=== PATIENT | male | born 1985 | race African-American/Black ===

== ENCOUNTER 2016-10-09 10:14 | Emergency (ER) | payer SELFPAY ==
[~2016-10-09] VITALS: Ht 167.6 cm; Wt 61.2 kg
[~2016-10-09 10:14] MED LIST: ANAPROX DS550 MG PO; FLUMADINE100 MG PO; PREDNISONE10 MG PO; ROBITUSSIN AC 110 ML PO; ZITHROMAX250 MG PO
[2016-10-09 10:57] LABS: BASO % 0.5 % (0.0-1.0); EOS # 0.1 10*3/uL (0.0-0.4); EOS % 1.8 % (1.0-4.0); HEMATOCRIT 46.5 % (42.0-52.0); HEMOGLOBIN 15.3 g/dl (14.0-18.0); LYMPH # 2.2 10*3/uL (1.3-4.4); LYMPH % 35.8 % (27.0-41.0); MEAN CELL VOLUME 96.3 fl (80.0-94.0); MEAN CORPUSCULAR HGB 31.7 pg (27.0-31.0); MEAN CORPUSCULAR HGB CONC 32.9 g/dl (33.0-37.0); MEAN PLATELET VOLUME 9.3 fl (9.6-12.3); MONO # 0.8 10*3/uL (0.1-1.0); MONO % 13.3 % (3.0-9.0); NEUT % 48.3 % (47.0-73.0); PLATELET COUNT AUTOMATED 294 10*3/uL (130-400); RED BLOOD COUNT 4.83 10*6/uL (4.50-5.90); RED CELL DISTRI WIDTH 12.6 % (0-14.5); WHITE BLOOD COUNT 6.3 10*3/uL (4.8-10.8)
[2016-10-09] MEDS ORDERED: INDOMETHACIN50 MG PO (11:47)
== END 2016-10-09 12:10 | disposition home or self-care (01) ==
LOC: ED 10:14
PROVIDERS: Nurse Practitioner Family
DX: M10.9 Gout, unspecified (principal); Z91.013 Allergy to seafood; Z79.899 Other long term (current) drug therapy